=== PATIENT | male | born 1965 | race Caucasian/White ===

== ENCOUNTER 2017-02-20 16:38 | Inpatient (IN) | payer BC ==
[~2017-02-20] VITALS: Ht 180.3 cm; Wt 126.6 kg
[2017-02-20 16:38] VITALS: BP_SYST 141
[2017-02-20] MEDS ORDERED: NACL 0.9% 1,000 ML IV ONE (16:43)
[2017-02-20] MEDS ORDERED: ASPIRIN 325 MG TABLET PO ONE (16:45)
[2017-02-20 17:00] LABS: BASOPHILS # (AUTO) 0.1 K/uL (0.0-0.2); BASOPHILS % (AUTO) 0.7 % (0.0-2.0); EOSINOPHILS # (AUTO) 0.1 K/uL (0.0-0.4); EOSINOPHILS % (AUTO) 1.3 % (0.0-4.0); HEMATOCRIT 41.6 % (36-54); HEMOGLOBIN 13.5 g/dL (14.0-18.0); LYMPHOCYTES # (AUTO) 2.1 K/uL (1.0-5.5); LYMPHOCYTES % (AUTO) 24.9 % (20.5-51.5); MEAN CORPUSCULAR HEMOGLOBIN 27 pg (27-31); MEAN CORPUSCULAR HGB CONC 33 % (32-36); MEAN CORPUSCULAR VOLUME 82 fL (79.0-98.0); MONOCYTES # (AUTO) 0.7 K/uL (0.0-1.0); NEUTROPHILS # (AUTO) 5.5 K/uL (1.8-7.7); NEUTROPHILS % (AUTO) 65.1 % (40.0-70.0); PLATELET COUNT (AUTO) 191 K/uL (130-430); RED BLOOD CELL COUNT(AUTO) 5.06 MIL/uL (4.2-6.2); RED CELL DISTRIBUTION WIDTH 12.9 % (9.0-15.0); WHITE BLOOD COUNT (AUTO) 8.5 K/uL (4.8-10.8)
[2017-02-20 17:04] LABS: CALCIUM 8.4 mg/dL (8.4-11.0); CREATININE 0.96 mg/dL (0.55-1.30)
[2017-02-20 17:07] LABS: PROTHROMBIN TIME 10.4 SECS (9.5-12.5)
[2017-02-20 17:08] LABS: ALBUMIN 3.6 g/dL (3.4-4.8); TOTAL BILIRUBIN 0.3 mg/dL (0.0-1.0); TOTAL PROTEIN, SERUM 7.3 g/dL (6.4-8.3)
[2017-02-20] MEDS ORDERED: METF1000 PO (19:28)
[2017-02-20] MEDS ORDERED: SIMV40TA2 PO (19:29)
[2017-02-20] MEDS ORDERED: ASPI81TA2 PO (19:29)
[2017-02-20] MEDS ORDERED: PIOG15TA66 PO (19:30)
[2017-02-20] MEDS ORDERED: cefTRIAXone 2 GM VIAL ONE (20:08)
[2017-02-20 20:14] LABS: BILIRUBIN,URINE NEGATIVE (NEGATIVE); BLOOD, URINE NEGATIVE (NEGATIVE); CLARITY/URINE CLEAR (CLEAR); COLOR,URINE YELLOW (YELLOW); GLUCOSE,URINE NEGATIVE (NEGATIVE); KETONES,URINE NEGATIVE (NEGATIVE); LEUKOCYTE ESTERASE ,URINE NEGATIVE (NEGATIVE); NITRITE, URINE NEGATIVE (NEGATIVE); PROTEIN URINE NEGATIVE (NEGATIVE)
[2017-02-20 21:02] VITALS: BP_SYST 112
[2017-02-20] MEDS ORDERED: DEXTROSE 50% JECT 50 ML DISP.SYRIN IVP PRN (23:45)
[2017-02-20] MEDS ORDERED: INSULIN REGULAR, HUMAN 100 UNITS/ML, 10 ML VIAL (novoLIN R) SUBCUT PRN (23:45)
[2017-02-21] VITALS (10 sets, daily range): BP systolic 106–131
[2017-02-21] MEDS ORDERED: ZOLPIDEM TARTRATE 5 MG TABLET PO PRN
[2017-02-21] MEDS ORDERED: ACETAMINOPHEN 325 MG TABLET PO PRN
[2017-02-21 07:31] LABS: CHOLESTEROL 118 mg/dL (<200); HDL CHOLESTEROL 35 mg/dL (>45); TRIGLYCERIDES 103 mg/dL (30-150)
[2017-02-21 07:32] LABS: LDL CHOLESTEROL 65 mg/dL (<100)
[2017-02-21] MEDS ORDERED: PIOGLITAZONE HCL 15 MG TABLET PO SCH (09:00)
[2017-02-21] MEDS: ASPIRIN 81 MG TAB.CHEW PO SCH (09:14)
[2017-02-21] MEDS: metFORMIN HCL 500 MG TABLET PO SCH (09:14)
[2017-02-21 13:58] LABS: ABG TOTAL HEMOGLOBIN 14.3 G/dL (12.0-18.0); BLOOD GAS BASE EXCESS 2.5 mmol/L (-3.0-3.0); BLOOD GAS COHb% 0.6 % (0.5-1.5); BLOOD GAS HHB 5.4 % (0.0-6.0); BLOOD GAS PH 7.434 (7.350-7.450); BLOOD O2Hb% 93.6 % (94.0-97.0)
[2017-02-21] MEDS ORDERED: SIMVASTATIN 40 MG TABLET PO SCH (21:00)
[2017-02-21] MEDS ORDERED: ENOXAPARIN SODIUM 40 MG/0.4 ML SYRINGE SUBCUT SCH (21:00)
[2017-02-22 01:25] VITALS: BP_SYST 108
[2017-02-22 04:17] VITALS: BP_SYST 108
[2017-02-22 08:24] VITALS: BP_SYST 131
[2017-02-22] MEDS: metFORMIN HCL 500 MG TABLET PO SCH (09:02)
[2017-02-22] MEDS: ASPIRIN 81 MG TAB.CHEW PO SCH (09:02)
[2017-02-22 12:41] VITALS: BP_SYST 124
[2017-02-22] MEDS ORDERED: MOME13HF2 INH (15:35)
[2017-02-22] MEDS ORDERED: METF1000 PO (15:35)
[2017-02-22 16:05] VITALS: BP_SYST 120
[2017-02-22 16:19] VITALS: BP_SYST 116
== END 2017-02-22 16:50 | disposition home or self-care (01) | DRG 313 ==
LOC: SED 16:38 → STU 20:37
PROVIDERS: ADMIT Internal Medicine; ATTEND Internal Medicine
PROC: 5A09357 Assistance with Respiratory Ventilation, Less than 24 Consecutive Hours, Continuous Positive Airway Pressure (ICD-10-PCS; principal; 2017-02-21)
DX: R07.89 Other chest pain (principal); E11.9 Type 2 diabetes mellitus without complications; E66.01 Morbid (severe) obesity due to excess calories; J98.4 Other disorders of lung; G47.33 Obstructive sleep apnea (adult) (pediatric); E78.5 Hyperlipidemia, unspecified; I10 Essential (primary) hypertension; I25.2 Old myocardial infarction; Z80.51 Family history of malignant neoplasm of kidney; Z87.891 Personal history of nicotine dependence; Z79.899 Other long term (current) drug therapy; Z79.82 Long term (current) use of aspirin; Z79.84 Long term (current) use of oral hypoglycemic drugs; Z83.3 Family history of diabetes mellitus
CPT/HCPCS: 36415; 36600; 71010; 71250-TC; 80053; 80061; 81003; 82150-TC; 82550-TC; 82803-TC; 82962; 83036; 83735-TC; 84484; 85025; 85379; 85610-TC; 85730-TC; 93005; 93306; 94660; 96361; 96365; 99285; J0696; J1650; J1815; J7030; J7060